=== PATIENT | female | born 1970 | race African-American/Black ===

== ENCOUNTER 2017-05-18 18:55 | Emergency (ER) | payer BC ==
[~2017-05-18] VITALS: Ht 149.9 cm; Wt 82.9 kg
[~2017-05-18 18:55] MED LIST: ALLERGY RELIE15.8 ML BOTH NARES; BUDEPRION SR150 MG PO; BUSPAR10 MG PO; BUSPAR15 MG PO; CLARITIN,ALAVAR10 MG PO; CLARITIN10 M3 PO; FERROUS SU15 MG/1 ML PO; FLEXERIL5 MG PO; FLONASE16 G1 BOTH NARES; KLONOPIN0.5 M1 PO; LIPITOR40 MG PO; LIPITOR80 MG PO; LISINOPRIL40 MG PO; LOPRESSOR50 MG PO; MOTRIN600 MG PO; NAPROSYN250 MG PO; NORVASC10 MG PO; NOVAFERRUM125 MG/5 M PO; PROMETHAZI6.25 MG/5 PO; SENNA-DOCUSATE1 EAC1 PO; TYLENOL PO; VITAMIN C; VITAMIN D31000 UNI2 PO; WELLBUTRIN SR150 MG PO; ZESTRIL40 MG PO
[2017-05-18 20:08] LABS: HEMATOCRIT 41.6 % (36.0-46.0); MCHC 33.7 G/DL (30.0-36.0); MCV 86.3 FL (83-99); MEAN PLAT.VOLUME 10.1 uM^3 (9.5-12.4); PLATELET COUNT 310 K/uL (156-360); RBC DIS.WIDTH-CV 13.2 % (11.8-14.6); RBC DIS.WIDTH-SD 41.5 % (39-53); RED BLOOD COUNT 4.82 M/uL (3.80-5.20); WHITE BLOOD COUNT 11.2 K/uL (4.1-10.2)
[2017-05-18 20:31] LABS: QUANTITATIVE HCG < 4.0 MIU/ML
[2017-05-18 20:32] LABS: CHLORIDE 107 mEq/L (99-109); POTASSIUM 4.4 mEq/L (3.7-5.4); SODIUM 139 mEq/L (136-147)
[2017-05-18 20:35] LABS: GLUCOSE 95 mg/dL (70-99)
[2017-05-18 20:36] LABS: ANION GAP 10 MEQ/L (2-14)
[2017-05-18 20:37] LABS: TOTAL BILIRUBIN 0.4 mg/dL (0.0-1.0)
[2017-05-18 20:38] LABS: ALKALINE PHOSPHATASE 74 IU/L (3-129); GFR ESTIMATE (CALCULATED) > 59 mL/min/
[2017-05-18 20:39] LABS: UREA NITROGEN (BUN) 10 mg/dL (9-23)
[2017-05-18 21:44] LABS: ADD MIUA? YES; BILIRUBIN NEGATIVE; BLOOD SMALL; COLOR YELLOW ((YELLOW)); GLUCOSE (STRIP) NEGATIVE; KETONES NEGATIVE; LEUKOCYTES TRACE; NITRITE NEGATIVE; PROTEIN (STRIP) 30; SPECIFIC GRAVITY 1.019 (1.000-1.030); UROBILINOGEN 0.2 MG/DL (0.2-1.0)
[2017-05-18 22:26] LABS: BACTERIA RARE /HPF; EPITHELIAL CELLS 1+ /HPF; MUCUS TRACE /LPF; RED BLOOD CELLS 0-5 /HPF (0-5); UCUL ADDED? NO; WHITE BLOOD CELLS 0-5 /HPF (0-5)
[2017-05-18] MEDS ORDERED: ZOFRAN ODT4 MG PO (22:36)
[2017-05-18 23:37] VITALS: BP 124/85
== END 2017-05-18 23:30 | disposition home or self-care (01) ==
LOC: EME 18:55
DX: R11.2 Nausea with vomiting, unspecified (principal); R19.7 Diarrhea, unspecified; K21.9 Gastro-esophageal reflux disease without esophagitis; I10 Essential (primary) hypertension; F32.9 Major depressive disorder, single episode, unspecified; G43.909 Migraine, unspecified, not intractable, without status migrainosus
CPT/HCPCS: 80053; 81003; 84702; 85027; 99281; 99285; J2405; J7030